=== PATIENT | male | born 1965 | race Caucasian/White ===

== ENCOUNTER 2017-03-31 12:54 | Emergency (ER) | payer OTHER ==
[~2017-03-31] VITALS: Ht 167.6 cm; Wt 79.1 kg
[~2017-03-31 12:54] MED LIST: FOLI1TAB19 PO; Gemfibrozil PO; LORA-476 PO; MULT-405 PO; ORE25 PO; THIA100T25 PO; VITB12 PO
[2017-03-31 13:29] VITALS: BP 154/80
--- NOTE | 2017-03-31 13:38 | NUR ---
PT AA&OX4, ANSWERING QUESTIONS APPROPRIATELY AT THIS TIME, RR EVEN/UNLABORED; PT TO LOBBY AWAITING OPEN BED.
[2017-03-31 14:17] LABS: BASOPHILS # (AUTO) 0.2 K/uL (0.00-0.22); BASOPHILS % (AUTO) 1.8 % (0.0-2.0); EOSINOPHILS % (AUTO) 0.3 % (0.0-4.0); HEMATOCRIT 52.3 % (36-52); HEMOGLOBIN 17.3 g/dL (12.0-18.0); LYMPHOCYTES # (AUTO) 3.4 K/uL (2.0-11.5); LYMPHOCYTES % (AUTO) 36.8 % (20.5-51.1); MEAN CORPUSCULAR HEMOGLOBIN 31 pg (27-31); MEAN CORPUSCULAR HGB CONC 33 g/dL (33-37); MEAN CORPUSCULAR VOLUME 93 fL (80-94); MONOCYTES # (AUTO) 0.4 K/uL (0.8-1.0); MONOCYTES % (AUTO) 4.3 % (1.7-9.3); NEUTROPHILS # (AUTO) 5.2 K/uL (1.8-7.7); NEUTROPHILS % (AUTO) 56.8 % (42.2-75.2); PLATELET COUNT (AUTO) 323 K/uL (140-450); RED BLOOD CELL COUNT(AUTO) 5.62 MIL/uL (4.20-6.10); RED CELL DISTRIBUTION WIDTH 11.8 % (11.6-13.7); WHITE BLOOD COUNT (AUTO) 9.2 K/uL (4.8-10.8)
[2017-03-31 14:41] LABS: ANION GAP 13.2 (8-16); CARBON DIOXIDE 30.4 mmol/L (21-32); CREATININE 1.1 mg/dL (0.7-1.3); POTASSIUM 3.6 mmol/L (3.5-5.1); TOTAL BILIRUBIN 0.5 mg/dL (0.0-1.0)
--- NOTE | 2017-03-31 19:46 | NUR ---
PATIENT LEFT, DOESNT WANT TO WAIT , TO SEE PMD TOMORROW.PATIENT LEFT WITHOUT BEING SEEN BY DR. CARMICHAEL. NO FURTHER CARE PROVIDED FOR PATIENT.
== END 2017-03-31 19:46 | disposition left against medical advice (07) ==
LOC: MED 12:54
DX: R40.4 Transient alteration of awareness (principal); Z53.21 Procedure and treatment not carried out due to patient leaving prior to being seen by health care provider
CPT/HCPCS: 36415; 80053; 85025; 99281; G0482

== ENCOUNTER 2018-07-22 21:16 | Emergency (ER) | payer BC ==
[~2018-07-22] VITALS: Ht 165.1 cm; Wt 84.8 kg
[~2018-07-22 21:16] MED LIST changes: +CYAN100T65 PO; -VITB12 PO
[2018-07-22 21:19] VITALS: BP 157/93
--- NOTE | 2018-07-22 21:25 | NUR ---
PT PROVIDING URINE. AMBULATED TO BED 7. ACCOMPANIED BY .
--- NOTE | 2018-07-22 21:40 | NUR ---
PT BIB SPOUSE C/O ETOH AND HTN. PT STATES HE DRANK A PINT OF VODKA TODAY, LAST DRINK WAS AROUND THE AFTERNOON TIME. 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 PT STATES 0/10 PAIN AT THIS TIME. DENIES LOC, DENIES N/V/D AT THIS TIME. --PT IS AAOX4, CLEAR SPEECH. PT ACTING APPRORIATLY. BREATHING EQUAL AND UNLABORED. PT IN GOWN, IN BED; BED IN LOWER LOCKED POSITION. THREAD TOOL GRINDER SET UP OPERATOR APPLIED. PENDING ER MD WALTERS. WILL CONTINUE TO MONITOR. PMH: HTN RX: DENIES
--- NOTE | 2018-07-22 22:25 | NUR ---
Patient discharged with v/s stable. Patient acting appropriatly, states 0/10 pain at this time. Patient provided with alcohol detox resourse packet. Written and verbal after care instructions given and explained. Patient verbalized understanding. Ambulatory with steady gait. All questions addressed prior to discharge. Advised to follow up with PMD.
[2018-07-22 22:32] VITALS: BP 141/96
== END 2018-07-22 22:25 | disposition home or self-care (01) ==
LOC: MED 21:16
DX: F10.10 Alcohol abuse, uncomplicated (principal); I10 Essential (primary) hypertension; Z79.899 Other long term (current) drug therapy
CPT/HCPCS: 99281

== ENCOUNTER 2018-07-23 19:09 | Inpatient (IN) | payer BC ==
[~2018-07-23] VITALS: Ht 167.6 cm; Wt 81.2 kg
[2018-07-23] MEDS: NACL 0.9% 1,000 ML IV SCH
[2018-07-23 19:23] VITALS: BP 146/99
--- NOTE | 2018-07-23 19:27 | NUR ---
TO LOBBY A/W BED, AMBULATORY
--- NOTE | 2018-07-23 19:52 | NUR ---
53 YO M BIB WHO STATES PT IS HERE FOR ALCOHOL INTOXICATION AND HIGH BLOOD PRESSURE. IS "VERY CONCERNED" BECAUSE SHE THINKS THE PT "NEEDS HELP" AND SHE "DOESN'T KNOW WHAT ELSE TO DO." STATES SHE BROUGHT HIM TO [facility] LAST NIGHT FOR A SIMILAR COMPLAINT. PT STATES HIS LAST DRINK WAS AT 1600 BUT STATES HE HAS BEEN DRINKING X SEVERAL DAYS. -- PT IS A/O X 4. DENIES PAIN, NV, OR ANY OTHER COMPLAINT. PT HAS FACIAL FLUSHING AND SMELLS OF ALCOHOL. -- BREATHING IS EVEN/UNLABORED. -- BP: 149/91 PMH-- HTN, ALCOHOLISM RX-- DENIES PT IS CALM, COOPERATIVE, BEHAVIOR APPROPRIATE. VSS. POSITIONED FOR COMFORT. HOB ELEVATED. SIDE RAIL UP X1. BED IN LOWEST POSITION. NO APPARENT DISTRESS AT THIS TIME.
--- NOTE | 2018-07-23 19:53 | NUR ---
PT AMBULATED TO BED 2 WITH FAMILY AT THIS TIME.
--- NOTE | 2018-07-23 20:42 | NUR ---
Dr. Mota evaluating patient at bedside.
[2018-07-23] MEDS ORDERED: NACL 0.9% 1,000 ML IV ONE (20:55)
--- NOTE | 2018-07-23 21:10 | NUR ---
LABS DRAWN BY
[2018-07-23 21:24] LABS: BASOPHILS # (AUTO) 0.1 K/uL (0.00-0.22); BASOPHILS % (AUTO) 0.7 % (0.0-2.0); HEMATOCRIT 50.1 % (36-52); HEMOGLOBIN 17.4 g/dL (12.0-18.0); LYMPHOCYTES # (AUTO) 3.7 K/uL (2.0-11.5); LYMPHOCYTES % (AUTO) 37.9 % (20.5-51.1); MEAN CORPUSCULAR HEMOGLOBIN 32 pg (27-31); MEAN CORPUSCULAR HGB CONC 35 g/dL (33-37); MEAN CORPUSCULAR VOLUME 90.9 fL (80-94); MONOCYTES # (AUTO) 0.6 K/uL (0.8-1.0); MONOCYTES % (AUTO) 5.8 % (1.7-9.3); NEUTROPHILS # (AUTO) 5.4 K/uL (1.8-7.7); NEUTROPHILS % (AUTO) 55.6 % (42.2-75.2); PLATELET COUNT (AUTO) 212 K/uL (140-450); RED BLOOD CELL COUNT(AUTO) 5.51 MIL/uL (4.20-6.10); RED CELL DISTRIBUTION WIDTH 14.4 % (11.6-13.7); WHITE BLOOD COUNT (AUTO) 9.7 K/uL (4.8-10.8)
[2018-07-23 21:47] LABS: CARBON DIOXIDE 27.5 mmol/L (21-32); CHLORIDE 100 mmol/L (98-107); CREATININE 0.9 mg/dL (0.7-1.3); GFR ARICAN-AMERICAN 114 mL/min (>90); GLUCOSE 113 mg/dL (74-106); POTASSIUM 3.5 mmol/L (3.5-5.1); SODIUM SERUM 140 mmol/L (136-145); UREA NITROGEN, BLOOD 21 mg/dL (7-18)
[2018-07-23 21:55] LABS: ALBUMIN 4.1 g/dL (3.4-5.0); ASPARTATE AMINOTRANSFERASE 32 U/L (15-37); SALICYLATE 5.5 mg/dL (2.8-20.0); TOTAL BILIRUBIN 0.6 mg/dL (0.0-1.0)
[2018-07-23 22:05] LABS: ACETAMINOPHEN < 0.5 ug/ml (10-30)
[2018-07-23 22:06] LABS: BARBITURATE, URINE NEG. ng/ml (NEG <=200); BENZODIAZEPINE, URINE NEG. ng/mL (NEG <=200); CANNABINOID, URINE NEG. ng/mL (NEG <=50); COCAINE, URINE NEG. ng/mL (NEG <=300); OPIATE, URINE NEG. ng/mL (NEG <=2000); PHENCYCLIDINE SCREEN,URINE NEG. ng/mL (NEG <=25)
--- NOTE | 2018-07-23 22:32 | NUR ---
Patient appears to be resting comfortably in bed. Vital Signs within normal limits. Respirations even and unlabored.
[2018-07-23] MEDS ORDERED: DOCUSATE SODIUM 100 MG GELCAP PO PRN (22:40)
[2018-07-23] MEDS ORDERED: HYDROcodone/APAP 7.5/325 MG 1 TAB PO PRN (22:40)
[2018-07-23] MEDS ORDERED: ONDANSETRON 4 MG/2 ML VIAL IM/IVP PRN (22:40)
[2018-07-23] MEDS ORDERED: ACETAMINOPHEN 325 MG TAB PO PRN (22:40)
[2018-07-23] MEDS ORDERED: MULTIVITAMIN-12 10 ML, THIAMINE 100 MG, MAGNESIUM SULFATE 50% 2,000 MG, FOLIC ACID 1 MG... IV ONE ×5 (22:55)
[2018-07-23 23:12] LABS: APPEARANCE,URINE CLEAR (CLEAR); BILIRUBIN,URINE NEGATIVE (NEGATIVE); BLOOD, URINE TRACE-I (NEGATIVE); COLOR,URINE YELLOW (YELLOW); LEUKOCYTE ESTERASE ,URINE NEGATIVE (NEGATIVE); NITRITE, URINE NEGATIVE (NEGATIVE); UGLUCOSE NEGATIVE (NEGATIVE)
[2018-07-23 23:14] LABS: FREE T4 (FREE THYROXINE) 0.87 ng/dL (0.76-1.46); MAGNESIUM 2.4 mg/dL (1.8-2.4); PHOSPHORUS 3.2 mg/dL (2.5-4.9); THYROID STIMULATING HORMONE 1.47 uIU/mL (0.34-3.74)
[2018-07-23 23:17] LABS: PROTHROMBIN TIME 9.6 secs (10.8-13.4)
[2018-07-23 23:30] LABS: RBC,URINE 0-5 /HPF (0-5); URINE AMORPHOUS URATE 3+ /HPF (None Seen); WBC,URINE 0-5 /HPF (0-5)
[2018-07-23 23:40] VITALS: BP 158/90
--- NOTE | 2018-07-23 23:40 | NUR ---
PATIENT ARRIVED TO UNIT VIA WC, BEDSIDE REPORT RECEIVED FROM ER NURSE, INFORMED OF LACTIC 4.5 AND NOT TREATED IN ER, WILL TELL DR KNOWLES. IV IN RIGHT FA 18 G SL, DRESSING INTACT, MRSA SCREEN COLLECTED AND SENT TO LAB, V/S TAKEN NOTED BP 153/90 HR 100. AT BEDSIDE.
--- NOTE | 2018-07-23 23:45 | NUR ---
Patient will be admitted to care of Dr. Reyes. Admited to MS. Will go to room 112A. Belongings list completed. Report to ADRIANNA Rudd.
--- NOTE | 2018-07-24 00:03 | NUR ---
REPORT LACTIC TO DR KNOWLES, ORDER TO FLUID BOLUS WITH NS, MEDICATED PATIENT WITH TYLENOL FOR LONG.
[2018-07-24] MEDS ORDERED: NACL 0.9% 1,000 ML IV ONE ×2 (00:15→00:20)
--- NOTE | 2018-07-24 01:09 | NUR ---
PATIENT AMBULATED TO RESTROOM STEADY GAIT, ASSISTED BACK INTO BED
[2018-07-24] MEDS: LORazepam 2 MG/ML VIAL IVP SCH ×3 (01:39→14:33)
--- NOTE | 2018-07-24 01:39 | NUR ---
MEDICATED WITH ATIVAN ACCORDING TO MD ORDER
[2018-07-24] MEDS ORDERED: LORazepam 2 MG/ML VIAL ONE (01:48)
--- NOTE | 2018-07-24 04:46 | NUR ---
GAVE SCHEDULED ATIVAN
--- NOTE | 2018-07-24 06:28 | NUR ---
ASSISTED PATIENT TO BATHROOM
--- NOTE | 2018-07-24 07:35 | NUR ---
ENDORSED PATIENT TO DAY SHIFT NURSE.
[2018-07-24 08:07] LABS: BASOPHILS % (AUTO) 0.6 % (0.0-2.0); EOSINOPHILS % (AUTO) 0.1 % (0.0-4.0); HEMATOCRIT 43.8 % (36-52); HEMOGLOBIN 15.2 g/dL (12.0-18.0); LYMPHOCYTES # (AUTO) 2.6 K/uL (2.0-11.5); LYMPHOCYTES % (AUTO) 31.8 % (20.5-51.1); MEAN CORPUSCULAR HEMOGLOBIN 32 pg (27-31); MEAN CORPUSCULAR HGB CONC 35 g/dL (33-37); MEAN CORPUSCULAR VOLUME 90.9 fL (80-94); MONOCYTES # (AUTO) 0.5 K/uL (0.8-1.0); MONOCYTES % (AUTO) 6.7 % (1.7-9.3); NEUTROPHILS # (AUTO) 4.9 K/uL (1.8-7.7); NEUTROPHILS % (AUTO) 60.8 % (42.2-75.2); PLATELET COUNT (AUTO) 173 K/uL (140-450); RED BLOOD CELL COUNT(AUTO) 4.82 MIL/uL (4.20-6.10); RED CELL DISTRIBUTION WIDTH 14.1 % (11.6-13.7)
--- NOTE | 2018-07-24 08:08 | NUR ---
PATIENT HAS BEEN SCREENED AND CATEGORIZED MODERATE NUTRITION RISK. PATIENT WILL BE SEEN WITHIN 3-5 DAYS OF ADMISSION. 07/26/18[address]
[2018-07-24 08:22] LABS: ANION GAP 16.6 (8-16); CARBON DIOXIDE 23.9 mmol/L (21-32); CREATININE 0.8 mg/dL (0.7-1.3); POTASSIUM 3.5 mmol/L (3.5-5.1)
[2018-07-24 08:30] LABS: CHOL/HDL RATIO 2.9 (1-4.5)
[2018-07-24] MEDS: NACL 0.9% 1,000 ML IV SCH ×3 (08:40→22:00)
[2018-07-24] MEDS: FOLIC ACID 1 MG TAB PO SCH (09:39)
[2018-07-24] MEDS: HYDROCHLOROTHIAZIDE 25 MG TAB PO SCH (09:40)
[2018-07-24] MEDS: THIAMINE 100 MG TAB PO SCH (09:40)
[2018-07-24] MEDS: MULTIVITAMIN 1 TAB PO SCH (09:41)
--- NOTE | 2018-07-24 09:46 | NUR ---
PT MEDICATION ADMINISTERED, PT NOT IN PAIN AND STATES DESIRE TO GO HOME SOON, STATES NO COMPLAINTS OR ANY KIND.
[2018-07-24] MEDS ORDERED: MULTIVITAMIN-12 10 ML, THIAMINE 100 MG, MAGNESIUM SULFATE 50% 2,000 MG, FOLIC ACID 1 MG... IV SCH ×5 (10:00)
[2018-07-24] MEDS: CYANOCOBALAMIN 100 MCG TAB PO SCH (10:07)
--- NOTE | 2018-07-24 11:05 | NUR ---
PT WALKING AROUND THE HALLWAY WITH STEADY GAIT, DENIES PAIN OR DISCOMFORT.
[2018-07-24 11:40] VITALS: BP 164/92
--- NOTE | 2018-07-24 15:08 | NUR ---
IVF INFUSING WELL, SITE CLEAR, PT WITHOUT S/S OF ETOH WITHDRAW, PT DENIES ANY IMMEDIATE NEEDS OR PAIN, WILL CONTINUE TO MONITOR.
[2018-07-24 16:00] VITALS: BP 136/88
[2018-07-24] MEDS ORDERED: METOPROLOL 25 MG TAB PO SCH (16:30)
--- NOTE | 2018-07-24 18:59 | NUR ---
PT AT THIS TIME IS SLEEPING WITH NO OBVIOUS SIGNS OF DISTRESS. BREATHING IS UNLABORED AND PATIENT APPEARS TO HAVE PLEASANT AFFECT WITH NO SIGNS OF GRIMACING OR DISCOMFORT AT THIS TIME.
--- NOTE | 2018-07-24 19:26 | NUR ---
REPORT GIVEN TO EXCELLENCE SPECIALIST NURSE, PT IN STABLE CONDITION.
--- NOTE | 2018-07-24 19:27 | NUR ---
RECEIVED REPORT FROM DAY SHIFT RN. PATIENT IN STABLE CONDITION, ALERT AND ORIENTED. NO SIGNS OF DISTRESS ON RA. SAFETY PRECAUTIONS IN PLACE. WILL CONTINUE TO MONITOR.
[2018-07-24] MEDS: METOPROLOL 25 MG TAB PO SCH (21:53)
--- NOTE | 2018-07-24 21:53 | NUR ---
ADMINISTERED SCHEDULED MEDICATION. PATIENT TOLERATED WELL. NO SIGNS OF DISTRESS ON RA. SAFETY PRECAUTIONS IN PLACE.
[2018-07-25] VITALS: BP 144/85
--- NOTE | 2018-07-25 00:45 | NUR ---
PATIENT SLEEPING, VITALS STABLE, NO SIGNS OF DISTRESS ON RA. SAFETY PRECAUTIONS IN PLACE.
--- NOTE | 2018-07-25 03:05 | NUR ---
PATIENT STILL SLEEPING. NO SIGNS OF DISTRESS. SAFETY PRECAUTIONS IN PLACE.
--- NOTE | 2018-07-25 07:37 | NUR ---
GAVE BEDSIDE REPORT TO DAY SHIFT RN, PATIENT STABLE. ENDORSED INSERTION OF NEW IV. PREVIOUS SITE WAS LEAKING AND WAS DISCONTINUED. SAFETY PRECAUTIONS IN PLACE. Addendum: 07/25/18 at 0738 by Alisia Barraza RN WRONG PATIENT
--- NOTE | 2018-07-25 07:37 | NUR ---
GAVE BEDSIDE REPORT TO DAY SHIFT RN. PATIENT STABLE. ENDORSED TO DAY SHIFT NURSE FOR CONTINUITY OF CARE.
--- NOTE | 2018-07-25 07:38 | NUR ---
RECEIVED BEDSIDE REPORT FROM SYSTEMS SUPPORT ENGINEER NURSE. PATIENT IS AWAKE, ALERT AND ORIENTEDX4. NO SIGNS OF DISTRESS ON RA. SKIN IS INTACT. FALL PRECAUTIONS IN PLACE D/T PATIENT IN FOR ALCOHOL INTOX, SEIZURE PRECAUTIONS IN PLACE. IV ON R FA 18G INFUSING NS AT 100. CLEAN,DRY AND INTACT. PATIENT IS CONTINENT. ABLE TO MAKE NEEDS KNOWN. WILL CONTINUE TO MONITOR THE PATIENT. CALL LIGHT WITHIN REACH
[2018-07-25 08:00] VITALS: BP 146/92
[2018-07-25 08:28] LABS: ANION GAP 13.2 (8-16); CARBON DIOXIDE 26.2 mmol/L (21-32); CREATININE 0.9 mg/dL (0.7-1.3); POTASSIUM 3.4 mmol/L (3.5-5.1)
[2018-07-25 08:32] LABS: BASOPHILS % (AUTO) 0.3 % (0.0-2.0); EOSINOPHILS % (AUTO) 0.3 % (0.0-4.0); HEMATOCRIT 43.6 % (36-52); HEMOGLOBIN 15.3 g/dL (12.0-18.0); LYMPHOCYTES # (AUTO) 1.8 K/uL (2.0-11.5); LYMPHOCYTES % (AUTO) 25.3 % (20.5-51.1); MEAN CORPUSCULAR HEMOGLOBIN 32 pg (27-31); MEAN CORPUSCULAR HGB CONC 35 g/dL (33-37); MEAN CORPUSCULAR VOLUME 90.9 fL (80-94); MONOCYTES # (AUTO) 0.5 K/uL (0.8-1.0); NEUTROPHILS # (AUTO) 4.9 K/uL (1.8-7.7); NEUTROPHILS % (AUTO) 67.1 % (42.2-75.2); PLATELET COUNT (AUTO) 150 K/uL (140-450); RED CELL DISTRIBUTION WIDTH 14.1 % (11.6-13.7); WHITE BLOOD COUNT (AUTO) 7.3 K/uL (4.8-10.8)
[2018-07-25] MEDS ORDERED: METO25TE2 PO (08:41)
[2018-07-25] MEDS ORDERED: ORE25 PO (08:43)
[2018-07-25] MEDS ORDERED: MULT-2253 PO (08:43)
[2018-07-25] MEDS ORDERED: CALCIUM CARB/VIT-D 500 MG/200 IU 1 TAB PO SCH (09:00)
[2018-07-25] MEDS ORDERED: POTASSIUM CHLORIDE 10 MEQ TABER PO SCH (09:00)
[2018-07-25] MEDS: FOLIC ACID 1 MG TAB PO SCH (09:09)
[2018-07-25] MEDS: THIAMINE 100 MG TAB PO SCH (09:09)
[2018-07-25] MEDS: METOPROLOL 25 MG TAB PO SCH (09:09)
[2018-07-25] MEDS: HYDROCHLOROTHIAZIDE 25 MG TAB PO SCH (09:09)
[2018-07-25] MEDS: MULTIVITAMIN 1 TAB PO SCH (09:09)
[2018-07-25] MEDS: CYANOCOBALAMIN 100 MCG TAB PO SCH (09:10)
--- NOTE | 2018-07-25 09:13 | NUR ---
ADMINISTERED MEDS. PATIENT TOLERATED WELL. EDUCATED ON SIDE EFFECTS. PATIENT VERBALIZED UNDERSTANDING. PATIENT REFUSED NEW BAG OF NS AT THIS TIME. HE SAID HE WILL JUST DRINK A LOT OF WATER AND HE WILL BE DISCHARGED ANYWAYS. NO IVF INFUSING AT THIS TIME. EDUCATED PATIENT ON THE RISKS, PATIENT STILL REFUSED. HE SAID HE WILL JUST DRINK WATER
--- NOTE | 2018-07-25 09:17 | NUR ---
ORTHO VITALS FOLLOWED. LAYING B/P 142/79 HR 95. 5 MINS AFTER SITTING B/P 154/91 HR 103. 5 MINS AFTER STANDING B/P 162/96 HR 107. PATIENT STATES IT IS CAUSE HE JUST HAD COFFEE WITH SUGAR AND A LITTLE ANXIOUS
[2018-07-25] MEDS ORDERED: INFLUENZA VIRUS VACCINE QUAD 0.5 ML SYR IMVAC PRN (11:25)
--- NOTE | 2018-07-25 11:49 | NUR ---
PATIENT EDUCATED ON DISEASE PROCESS, ABN S/SX, WHEN TO GO TO THE ER, GAVE RESOURCES FOR ANY ALCOHOL REHAB FACILITIES, ALSO GAVE INFORMATION ON THE NEED TO STOP ALCOHOL INCLUDING EDUCATIONAL PACKETS FOR ALCOHOL WITHDRAWAL, ALCOHOL INTOXICATION. REMOVED IV, TIP INTACT. REMOVED ID BANDS. PATIENT GOT PNA VACCINE IN 2014. INFLUENZA VACCINE GIVEN 07/25/18, PATIENT EDUCATED ON VACCINE, TOLERATED WELL. EDUCATED ON MEDS, PRESCRIPTIONS GIVEN. FOLLOW UP W PCP. PATIENT VERBALIZED UNDERSTANDING. SIGNED PAPERWORK AND THANKED ME FOR THE RESOURCES GIVEN. PATIENT LEFT W IN STABLE CONDITION WALKING.
== END 2018-07-25 11:50 | disposition home or self-care (01) | DRG 91 ==
LOC: MED 19:09 → MTU 22:42
PROVIDERS: ADMIT General Practice; ATTEND General Practice
DX: G92 Toxic encephalopathy (principal); N17.0 Acute kidney failure with tubular necrosis; E72.20 Disorder of urea cycle metabolism, unspecified; I10 Essential (primary) hypertension; Y90.8 Blood alcohol level of 240 mg/100 ml or more; E78.5 Hyperlipidemia, unspecified; F10.10 Alcohol abuse, uncomplicated; E86.0 Dehydration; E87.6 Hypokalemia; E83.51 Hypocalcemia; Z79.899 Other long term (current) drug therapy; Z82.49 Family history of ischemic heart disease and other diseases of the circulatory system
CPT/HCPCS: 36415; 71045; 80048; 80053; 80305; 81001; 82140; 83036; 83605; 83690; 83735; 83880; 84100; 84439; 84443; 85025; 85610; 85730; 87081; 93005; 96360; 99285; A9153; G0480; G0482; J2060; J3411; J3475; J3490; J7030

== ENCOUNTER 2020-02-23 13:52 | Emergency (ER) | payer BC ==
[~2020-02-23] VITALS: Ht 165.1 cm; Wt 78.5 kg
[~2020-02-23 13:52] MED LIST changes: -CYAN100T65 PO; -FOLI1TAB19 PO; -Gemfibrozil PO; -LORA-476 PO; +METO25TE2 PO; +MULT-2253 PO; -MULT-405 PO; -THIA100T25 PO
[2020-02-23 13:56] VITALS: BP 152/95
--- NOTE | 2020-02-23 14:02 | NUR ---
Pt ambulated to ER bed 12.
--- NOTE | 2020-02-23 14:07 | NUR ---
54 Y/O MALE A&OX4 BIB FOR ETOH/SLURRED SPEECH. PT STATES THAT HE HAS BEEN DRINKING 1 PINT VODKA X5DAYS. PT STATES TOOK HIM TO [facility] AND WAS REFFERED HERE TO SEEK MEDICAL ASSISTANCE. DENIES FEVER, CHILLS, PAIN. DENIES PMH, RX NKA
--- NOTE | 2020-02-23 14:32 | NUR ---
Dr. Maravilla at pt bedside for evaluation.
[2020-02-23 14:55] VITALS: BP 152/95
--- NOTE | 2020-02-23 14:55 | NUR ---
Patient discharged with v/s stable. Written and verbal after care instructions given and explained. Patient verbalized understanding. Ambulatory with steady gait. All questions addressed prior to discharge. Advised to follow up with PMD.
== END 2020-02-23 14:55 | disposition home or self-care (01) ==
LOC: MED 13:52
DX: F10.129 Alcohol abuse with intoxication, unspecified (principal); R47.81 Slurred speech; Z79.899 Other long term (current) drug therapy
CPT/HCPCS: 99281